=== PATIENT | female | born 1980 | race Caucasian/White ===

== ENCOUNTER 2017-12-02 14:42 | Emergency (ER) | payer OTHER ==
[~2017-12-02] VITALS: Ht 167.6 cm; Wt 90.7 kg
[2017-12-02 15:30] LABS: URINE BILIRUBIN NEGATIVE (Negative); URINE BLOOD NEGATIVE (Negative); URINE CLARITY CLEAR; URINE COLOR YELLOW; URINE GLUCOSE-RANDOM* NEGATIVE (Negative); URINE KETONES TRACE (Negative); URINE LEUKOCYTES-REFLEX NEGATIVE (Negative); URINE NITRITE-REFLEX NEGATIVE (Negative); URINE PROTEIN (DIPSTICK) NEGATIVE (Negative); URINE SPECIFIC GRAVITY >= 1.030 (1.005-1.035); URINE UROBILINOGEN 0.2 E.U./dl (0.2-1.0)
[2017-12-02 17:29] LABS: HEMATOCRIT 37.2 % (37.0-47.0); HEMOGLOBIN 12.6 gm/dL (12.0-15.0); MCH 30.6 pg (26.0-34.0); MCHC 33.8 g/dL (28.0-37.0); MCV 90.4 fL (80.0-100.0); RBC 4.12 mil/uL (4.20-5.00); RDW 13.5 % (10.5-14.5); WBC 9.9 thou/uL (4.0-11.0)
[2017-12-02 17:37] LABS: CALCIUM 9.2 mg/dL (8.5-10.1); CREATININE 0.8 mg/dL (0.6-1.0); POTASSIUM 3.4 mmol/L (3.5-5.1)
[2017-12-02 18:19] VITALS: BP 135/80
== END 2017-12-02 18:20 | disposition home or self-care (01) ==
LOC: ER 14:42
PROVIDERS: Emergency Medicine
DX: N83.201 Unspecified ovarian cyst, right side (principal); N83.202 Unspecified ovarian cyst, left side; Z88.0 Allergy status to penicillin

== ENCOUNTER 2017-12-12 12:08 | Emergency (ER) | payer OTHER ==
[~2017-12-12] VITALS: Ht 167.6 cm; Wt 90.7 kg
[2017-12-12 13:47] VITALS: BP 124/77
== END 2017-12-12 13:48 | disposition home or self-care (01) ==
LOC: ER 12:08
DX: S90.112A Contusion of left great toe without damage to nail, initial encounter (principal); F17.200 Nicotine dependence, unspecified, uncomplicated; Z88.0 Allergy status to penicillin; W20.8XXA Other cause of strike by thrown, projected or falling object, initial encounter; Y92.89 Other specified places as the place of occurrence of the external cause; Y93.89 Activity, other specified; Y99.8 Other external cause status

== ENCOUNTER 2019-03-19 18:52 | Emergency (ER) | payer OTHER ==
[~2019-03-19] VITALS: Ht 167.6 cm; Wt 90.7 kg
[2019-03-19 19:18] LABS: URINE BILIRUBIN NEGATIVE (Negative); URINE BLOOD 1+ (Negative); URINE CLARITY CLEAR; URINE COLOR YELLOW; URINE GLUCOSE-RANDOM* NEGATIVE (Negative); URINE KETONES NEGATIVE (Negative); URINE NITRITE-REFLEX NEGATIVE (Negative); URINE PROTEIN (DIPSTICK) NEGATIVE (Negative); URINE SPECIFIC GRAVITY >= 1.030 (1.005-1.035); URINE UROBILINOGEN 0.2 E.U./dl (0.2-1.0)
[2019-03-19 19:20] LABS: URINE LEUKOCYTES-REFLEX 1+ (Negative)
[2019-03-19 19:40] LABS: SQUAMOUS >10 Many /LPF (0-3); URINE WBC-REFLEX >25 Many /HPF (0-5)
[2019-03-19 19:41] LABS: CASTS None Seen /LPF (None Seen); CRYSTALS None Seen /LPF (None Seen); MUCUS 0-3 Light strn/LPF (None Seen)
[2019-03-19] MEDS ORDERED: BACTRIM DS TAB1 EACH PO (20:04)
[2019-03-19 21:24] VITALS: BP 126/82
== END 2019-03-19 21:24 | disposition home or self-care (01) ==
LOC: ER 18:52
PROVIDERS: Emergency Medicine
DX: L02.31 Cutaneous abscess of buttock (principal); N39.0 Urinary tract infection, site not specified; Z88.0 Allergy status to penicillin

== ENCOUNTER 2020-05-16 19:49 | Emergency (ER) | payer OTHER ==
[~2020-05-16] VITALS: Ht 167.6 cm; Wt 90.7 kg
[~2020-05-16 19:49] MED LIST: BACTRIM DS TAB1 EACH PO
[2020-05-16 20:34] LABS: HEMATOCRIT 38.8 % (37.0-47.0); MCH 30.7 pg (26.0-34.0); MCHC 33.5 g/dL (28.0-37.0); MCV 91.6 fL (80.0-100.0); RBC 4.23 mil/uL (4.20-5.00); RDW 12.9 % (10.5-14.5); WBC 6.9 thou/uL (4.0-11.0)
[2020-05-16] MEDS ORDERED: FLAGYL500 M1 PO (22:29)
[2020-05-16 23:15] VITALS: BP 119/67
== END 2020-05-16 23:15 | disposition home or self-care (01) ==
LOC: ER 19:49
PROVIDERS: Nurse Practitioner Family
DX: O20.0 Threatened abortion (principal); O23.591 Infection of other part of genital tract in pregnancy, first trimester; B96.89 Other specified bacterial agents as the cause of diseases classified elsewhere; Z88.0 Allergy status to penicillin; Z3A.00 Weeks of gestation of pregnancy not specified

== ENCOUNTER 2020-10-22 11:15 | Emergency (ER) | payer OTHER ==
[~2020-10-22] VITALS: Ht 167.6 cm; Wt 88.5 kg
--- NOTE | ~2020-10-22 | EMS ---
[place] [address] EMS Patient Care Report Name: NADYA CRUZ Room #: REG OLI Wa[place]#: [id number] Admission: 10/22/20 Attend Phys: Discharge: Date of : 80 Report #: [id number] THIS REPORT FOR: //name// Report Transmitted: 10/22/2020 11:19 EMS Care Summary [place], [place]/[facility] Incident [phone] @ 10/22/2020 10:47 Incident Location [address] [place] [address] Patient NDAYA CRUZ Female, 40 Years 1980 Patient Address [address] [place] [address] Patient History Novel Coronavirus (COVID-19), Patient Allergies Penicillin allergy, Patient Medications None Reported, Chief Complaint vomiting Disposition Transported No Lights/[place] Reason Chest Pain (Non-Traumatic) Transported To [facility] Narrative pts stated pt is covid positive and has been quarantining at home. pt walked out to front door. pt was asked to wear a mask. pt applied a mask. pt complained of being covid positive x6 days and complained of her covid symptoms not improving. pt requested to be transported to [facility]. [place] [address] EMS Patient Care Report Name: NADYA CRUZ Room #: ISACC Waite#: [id number] Admission: 10/22/20 Attend Phys: Discharge: Date of : 80 Report #: [id number] pt stated her main complaint today is vomiting. pt was transferred onto ems cot and was secured in a semi fowlers position without incident. pt was loaded into ambulance. pt was transported non emergent. transport was uneventful and pt rested on ems cot. pt care was transferred to appropriate staff and ems goes back in service. pts wallet and phone were left with pt. Initial Vitals @10:55P: 82,R: 20,BP: 144/94,Pain: 0/10,GCS: 15,SpO2: 95,Revised Trauma: 12, @11:08P: 80,R: 20,BP: 140/50,GCS: 15,SpO2: 95,Revised Trauma: 12, Assessments @10:52MENTAL:No Abnormalities,SKIN:No Abnormalities,HEENT:Head/Face: No Abnormalities,Eyes: No Abnormalities,Neck/Airway: No Abnormalities,LUNG SOUNDS:General: No Abnormalities,Left Upper: No Abnormalities,Right Upper: No Abnormalities,Left Lower: No Abnormalities,Right Lower: No Abnormalities,ABDOMEN:General: No Abnormalities,Left Upper: No Abnormalities,Right Upper: No Abnormalities,Left Lower: No Abnormalities,Right Lower: No Abnormalities,PELVIS//GI:No Abnormalities,EXTREMITIES:Left Arm: No Abnormalities,Right Arm: No Abnormalities,Left Leg: No Abnormalities,Right Leg: No Abnormalities,PULSE:NEURO:No Abnormalities,@11:00MENTAL:No Abnormalities,SKIN:No Abnormalities,HEENT:Head/Face: No Abnormalities,Eyes: No Abnormalities,Neck/Airway: No Abnormalities,LUNG SOUNDS:General: No Abnormalities,Left Upper: No Abnormalities,Right Upper: No Abnormalities,Left Lower: No Abnormalities,Right Lower: No Abnormalities,ABDOMEN:General: No Abnormalities,Left Upper: No Abnormalities,Right Upper: No Abnormalities,Left Lower: No Abnormalities,Right Lower: No Abnormalities,PELVIS//GI:No Abnormalities,EXTREMITIES:Left Arm: No Abnormalities,Right Arm: No Abnormalities,Left Leg: No Abnormalities,Right Leg: No Abnormalities,PULSE:NEURO:No Abnormalities, Impression Vomiting Procedures @10:52ALS AssessmentResponse: UnchangedSucceeded Timeline 10:44,Call Received 10:44,Dispatch Notified 10:47,Dispatched 10:47,En Route 10:51,On Scene 10:52,At Patient 10:52,ALS Assessment,Response: UnchangedSucceeded, 10:55,BP: 144/94 M,PULSE: 82,RR: 20 R,SPO2: 95 Ox,ETCO2: ,BG: ,PAIN: 0,GCS: 15, 10:58,Depart Scene [facility] [address] [place] [address] EMS Patient Care Report Name: NADYA CRUZ Room #: ISACC [place]#: [id number] Admission: 10/22/20 Attend Phys: Discharge: Date of : 80 Report #: [id number] 11:08,BP: 140/50 M,PULSE: 80,RR: 20 R,SPO2: 95 Ox,ETCO2: ,BG: ,PAIN: ,GCS: 15, 11:10,At Destination 11:27,Call Closed Disclaimer v1.1 Copyright 2020 [employer] This EMS Care Summary contains data elements from the applicable legal record (which may be displayed differently). It is designed to provide pertinent information for the following purposes: continuity of care, clinical quality, and state data reporting. The complete legal record is available to ED staff and administrators of the receiving hospital in [employer] Patient Tracker. All data is provided "as is."
[~2020-10-22 11:15] MED LIST changes: +FLAGYL500 M1 PO
[2020-10-22 11:36] LABS: URINE BILIRUBIN NEGATIVE (Negative); URINE BLOOD NEGATIVE (Negative); URINE CLARITY CLEAR; URINE COLOR YELLOW; URINE GLUCOSE-RANDOM* NEGATIVE (Negative); URINE KETONES NEGATIVE (Negative); URINE LEUKOCYTES-REFLEX NEGATIVE (Negative); URINE NITRITE-REFLEX NEGATIVE (Negative); URINE PROTEIN (DIPSTICK) NEGATIVE (Negative); URINE SPECIFIC GRAVITY <= 1.005 (1.005-1.035); URINE UROBILINOGEN 0.2 E.U./dl (0.2-1.0)
[2020-10-22 11:50] LABS: HEMOGLOBIN 14.7 gm/dL (12.0-15.0); MCH 30.8 pg (26.0-34.0); MCHC 34.9 g/dL (28.0-37.0); MCV 88.2 fL (80.0-100.0); PLATELET COUNT 123 thou/uL (150-400); RBC 4.76 mil/uL (4.20-5.00); RDW 13.3 % (10.5-14.5); WBC 2.3 thou/uL (4.0-11.0)
[2020-10-22 12:03] LABS: CALCIUM 8.3 mg/dL (8.5-10.1); CREATININE 0.7 mg/dL (0.6-1.0); POTASSIUM 4.3 mmol/L (3.5-5.1)
[2020-10-22 12:09] LABS: ALBUMIN 3.6 g/dL (3.4-5.0); TOTAL BILIRUBIN 0.2 mg/dL (0.2-1.0); TOTAL PROTEIN 7.9 g/dL (6.4-8.2)
[2020-10-22 12:25] LABS: ABSOLUTE NEUTROPHILS 1.3 thou/uL (1.4-8.2); PLATELET ESTIMATE NORMAL
[2020-10-22 14:07] VITALS: BP 127/74
[2020-10-22] MEDS ORDERED: ZOFRAN ODT4 MG PO (14:15)
== END 2020-10-22 14:07 | disposition home or self-care (01) ==
LOC: ER 11:15
PROVIDERS: Student in an Organized Health Care Education/Training Program
DX: U07.1 COVID-19 (principal); R11.2 Nausea with vomiting, unspecified; R10.11 Right upper quadrant pain; Z79.899 Other long term (current) drug therapy; Z88.0 Allergy status to penicillin

== ENCOUNTER 2021-01-18 09:38 | Emergency (ER) | payer OTHER ==
[~2021-01-18] VITALS: Ht 167.6 cm; Wt 90.7 kg
[~2021-01-18 09:38] MED LIST changes: +ZOFRAN ODT4 MG PO
[2021-01-18 09:52] VITALS: BP 125/80
[2021-01-18] MEDS ORDERED: NORCO7.5 PO (11:15)
[2021-01-18] MEDS ORDERED: MEDROLDOSEPACK PO (11:15)
[2021-01-18] MEDS ORDERED: DIAZEPAM 5 MG5 MG PO (11:15)
== END 2021-01-18 11:26 | disposition home or self-care (01) ==
LOC: ER 09:38
DX: M54.12 Radiculopathy, cervical region (principal); Z79.899 Other long term (current) drug therapy; Z88.0 Allergy status to penicillin